=== PATIENT | male | born 1985 | race Caucasian/White ===

== ENCOUNTER 2023-08-09 15:36 | Emergency (ER) | payer SELFPAY ==
[2023-08-09 15:38] VITALS: BP 148/94; BMI 33.2
[2023-08-09 16:45] VITALS: BP 160/101
--- NOTE | 2023-08-09 17:01 | ED.GENMED ---
History of Present Illness
General
Chief Complaint: Extremity Pain (non-traumatic)
Source: patient
Exam Limitations: none
Time Seen by Provider: 08/09/23 15:57
Nursing documentation reviewed up to this point in time: agreed with
Travel History
Have you had any contact with someone who has COVID-19?: No
Do you have any symptoms of coronavirus? Fever > 100 degrees, chills, cough, shortness of breath, sore throat, loss of taste or smell, muscle aches, or headache?: No
History of Present Illness
History of Present Illness:
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
Review of Systems
Review of Systems
Allergies reviewed?: Yes
All Other Systems: ROS reviewed and negative except as documented in HPI and ROS
Phy Exam
Physical Exam
Physical Exam:
GENERAL: Alert , in no apparent distress
EYE: pupils equal and reactive
NECK: Supple, no significant adenopathy.
ENT: o/p clr, mmm.
CARDIAC: Regular rate and rhythm .
LUNGS: Clear breath sounds bilaterally, no acute respiratory distress, no wheezes/rales/rhonchi
ABDOMEN: Soft, without focal tenderness, no r/g, no cvat
NEUROLOGICAL: Alert and oriented, no focal neuro deficits
SKIN: Warm and dry, skin intact.
MUSCULOSKELETAL: Swelling and tenderness palpation to the left lateral malleolus minimal tenderness to the medial malleolus Achilles intact no tenderness throughout the midfoot or forefoot. Well perfused.
PSYCH: Normal and appropriate interaction.
Course
Orders/Labs/Results
Orders:
Orders
08/09/23 15:42
Ankle, left 3 view CR [CR Ankle - Left Min 3 Views ] Urgent
Comment:
Reason For Exam: pain
08/09/23 16:34
Crutches-Treatment ONCE
boot [Ortho Boot Left- Treatment] ONCE
Short or tall?: Tall
Vital Signs
Initial and Last Documented VS:
Initial Vital Signs
Temp Pulse Resp BP Pulse Ox
98.4 F 74 16 148/94 99
08/09/23 15:38 08/09/23 15:38 08/09/23 15:38 08/09/23 15:38 08/09/23 15:38
Last Documented Vital Signs
Temp Pulse Resp BP Pulse Ox
98.4 F 74 16 148/94 99
08/09/23 15:38 08/09/23 15:38 08/09/23 15:38 08/09/23 15:38 08/09/23 15:38
MDM/Problems Addressed
MDM/Problems Addressed:
38-year-old male presenting to the emergency department today with concerns of ankle discomfort after twisting his ankle prior to arrival. Tenderness mainly to the lateral malleolus in the inferior and posterior portion on x-ray there is a small
step-off that could represent a very small avulsion fracture. There is a small avulsion distal to this but this is well-corticated unclear if this is old fracture. Patient was placed in a boot given crutches and advised for close orthopedic
follow-up return precautions given otherwise.
*Critical Care Note
Total Time (30-74mins, 75-104mins- exclusive of procedures): Not Applicable
ED Attending Note
-
Portions of this chart may have been created with voice recognition software.� Occasional wrong word or��sound alike� substitutions may have occurred due to the inherent limitations of voice recognition software.
Discharge Plan
Departure
Patient Disposition: Home (Routine Discharge)
Date of Disposition: 08/09/23
Time of Disposition: 17:02
Patient with high blood pressure during this ER visit?: No
Condition: Good
Covid-19: Not Applicable
Discharge Problem:
Ankle fracture
Instructions: Ankle Fracture (DC)
Referrals:
Shanice Salguero I., DO [Active] - Follow up in 5-7 days
Jamal Dasilva MD [Family Provider] -
Stand Alone Forms: Return to Work
Activity Restrictions/Additional Instructions:
You came to the emergency department today with concerns of ankle discomfort. It appears that you may have a distal fibular fracture. Please rest ice and elevate over the next few days and follow-up closely with orthopedics for reassessment.
Return to the emergency department for any worsening, new or concerning symptoms.
Interventions
Interventions:
*Risk Screen - Suicide Last Done: 08/09/23 15:38
*General Assessment Last Done: 08/09/23 16:24
*Neglect/Abuse Screening Last Done: 08/09/23 15:38
ED- Fall Risk Assessment Last Done: 08/09/23 15:38
*ED COVID-19 Vaccine History Last Done: 08/09/23 15:38
ED-Skin Assessment Last Done: 08/09/23 16:24
ED-Peripheral Vascular Assessment Last Done: 08/09/23 16:24
ED-Musculoskeletal Assessment Last Done: 08/09/23 16:24
Discharge Date and Time
Print Language: SPANISH
[2023-08-09 17:10] VITALS: BP 160/101
--- NOTE | 2023-08-09 17:45 | EDRN ---
Crutch walking reviewed w/ pt. Pt has their own crutches at home.
== END 2023-08-09 17:46 | disposition home or self-care (01) ==
LOC: EMR 15:36
PROVIDERS: EMERGENCY PHYSICIAN Emergency Medicine; FAMILY PHYSICIAN Internal Medicine
DX: S82.62XA Displaced fracture of lateral malleolus of left fibula, initial encounter for closed fracture (principal); X50.1XXA Overexertion from prolonged static or awkward postures, initial encounter
CPT/HCPCS: 99283; 73610